=== PATIENT | male | born 1995 | race Caucasian/White ===

== ENCOUNTER 2017-06-24 20:41 | Emergency (ER) | payer SELFPAY ==
[2017-06-25] MEDS: LORAZEPAM 1 MG TAB PO (00:15)
== END 2017-06-25 00:20 | disposition home or self-care (01) ==
LOC: FTE 06-25 00:20
DX: F41.1 Generalized anxiety disorder (principal); F14.10 Cocaine abuse, uncomplicated; J45.909 Unspecified asthma, uncomplicated; Z87.891 Personal history of nicotine dependence
CPT/HCPCS: 93005; 99283-25